=== PATIENT | female | born 1970 | race Caucasian/White ===

== ENCOUNTER → 2020-11-28 | Outpatient (CLI) | payer BC, SELFPAY ==
--- NOTE | 2020-11-28 | EMB_PTH ---
PATIENT: MORE OCASIO LOC: [facility] U#:[id number] AGE/SX: 50/F ROOM: RE11/28/[address]: Dr. Elio Rico MD : [id number] BED: DIS: 11/28/2020 SPEC #: [id number] RECD: 11/28/20 13:30 STATUS: DAGO COLLEEN #: [id number] WILBER: 11/28/20 00:[address]: Elio Rico DEPT: SURGICAL PATHOLOGY RECD BY: Josué Schilling Tissues: Endometrium, NOS Procedures: Surgery Specimen Level IV HEADER OPERATION: Endometrial biopsy PRE-OP DIAGNOSIS: PMB TISSUE SUBMITTED: Endometrial biopsy MICROSCOPIC DIAGNOSIS Endometrium, biopsy: Rare strips of benign superficial endometrium and endocervix. Detached fragments of benign squamous mucosa. AM:daniel 12/01/2020 MICROSCOPIC DESCRIPTION Slides are reviewed. GROSS DESCRIPTION Received in fixative is one container labeled with the patient's name and designated EMB. The specimen consists of multiple fragments of hemorrhagic soft tissue mixed with mucoid tissue that in aggregate measure 2 x 2 x 0.2 cm. The specimen is totally submitted in one cassette. / SJ:daniel 11/28/20 TC:5 CPT: 44334
== END | disposition home or self-care (01) ==
LOC: LABSPEC 10:47
PROVIDERS: Visit Provider Obstetrics & Gynecology
DX: N95.0 Postmenopausal bleeding (principal)
CPT/HCPCS: 88305